=== PATIENT | female | born 1955 | race Caucasian/White ===

== ENCOUNTER → 2020-09-25 | Day surgery (SDC) | payer OTHER ==
[~2020-09-25] VITALS: Ht 165.1 cm; Wt 63.5 kg
[~2020-09-25] MED LIST: B-50 COMPLEX PO; CARAFATE1 GM PO; ONE-DAILY MULT1 EACH PO; OS-CAL500 MG PO; OSPHENA60 MG PO; PROTONIX 40MG T40 MG PO; VIT D3 PO; VIT E PO; WELLBUTRIN SR150 MG PO
== END | disposition home or self-care (01) ==
LOC: FAS 10:51
DX: K29.50 Unspecified chronic gastritis without bleeding (principal); K44.9 Diaphragmatic hernia without obstruction or gangrene; K25.9 Gastric ulcer, unspecified as acute or chronic, without hemorrhage or perforation; K31.4 Gastric diverticulum; K64.0 First degree hemorrhoids; K52.9 Noninfective gastroenteritis and colitis, unspecified; E78.79 Other disorders of bile acid and cholesterol metabolism; J30.2 Other seasonal allergic rhinitis; M27.0 Developmental disorders of jaws; Z90.49 Acquired absence of other specified parts of digestive tract; Z98.890 Other specified postprocedural states; Z20.822 Contact with and (suspected) exposure to COVID-19; Z86.010 Personal history of colon polyps
CPT/HCPCS: J2250; J2704; J7120